=== PATIENT | male | born 1960 | race Caucasian/White ===

== ENCOUNTER → 2022-04-06 12:05 | Outpatient (CLI) | payer OTHER, SELFPAY ==
--- NOTE | ~2022-04-06 | XR_ITS ---
XR lumbar spine 2-3V DATE: 04/06/2022 12:20 INDICATION: Lumbar radiculopathy TECHNIQUE: AP, lateral, coned lateral lumbosacral views COMPARISON: None FINDINGS: 17 degrees dextroscoliosis measured from T12 to L4. Normal alignment lumbar spine. No fracture or bone destruction is evident. The included lower thoraci c and lumbar pedicles are intact. Moderate degenerative disc disease at L1-2 and L3-4. Severe degenerative disc disease at L2-3 and L4- 5. Mild degenerative disc disease at L5-S1. The sacroiliac joints are intact. IMPRESSION: Levoscoliosis Multilevel degenerative disc disease Reviewed, dictated and finalized at location B.
== END ==
PROVIDERS: PCP Family Medicine; Visit Provider Family Medicine
DX: M54.16 Radiculopathy, lumbar region (principal); M51.36 Other intervertebral disc degeneration, lumbar region
CPT/HCPCS: 72100

== ENCOUNTER 2022-05-08 15:33 | Outpatient (RCR) | payer OTHER, SELFPAY ==
--- NOTE | 2022-05-08 16:32 | PTOPEVDC ---
Thank you for referring Eligio Fuentes to [facility].? An evaluation has been completed. No further treatment is needed. Evaluation Information Diagnosis Low back pain Onset chronic Subjective Information Pt states he first hurt his back in 1975, his freshman year of high school. He states he has never reported it because it is so infrequent last generally only 1-2 weeks at a time. This pain in increasing in frequently. He reports L sided pain that travels down his L leg, he also has intermittent pain on the R side that radiated to his entire body. Pt states his pain is very intermittent and he is not currently having any now. When he is not having pain he is able to run, exercise, and do whatever he wants. Pt states he would like to know what machines at [employer] are best for his back. Reported Pain Level Pain Score 0: Self Report Assessment PT Clinical Summary Eligio is an active 61 y/o male who presents to therapy with a diagnosis of lumbar radiculopathy. He reports intermittent pain and no desire to continue with routine skilled therapy and would just like instruction in a HEP for sciatica . Today he demonstrates BLE ROM that is WNL and well as good functional strength. He does not report any tenderness to palpation and does not reports symptoms with a Slump, sciatic nerve irritation test. He was instructed in sciatic nerve glides, piriformis stretching, and mobilization. He was instructed to follow up with her referring provider if any other needs arise. He will be discharged from skilled therapy services at this time. Plan of Care PT Services Indicated No Treatment Frequency and to be d/c'ed. Pt reports no skilled therapy needs Duration
== END 2022-05-11 16:09 | disposition home or self-care (01) ==
LOC: ANHGOSHPT 15:33
PROVIDERS: PCP Family Medicine; Visit Provider Family Medicine
DX: M54.16 Radiculopathy, lumbar region (principal)
CPT/HCPCS: 97110; 97161

== ENCOUNTER 2023-04-07 12:35 | Observation (INO) | payer OTHER, SELFPAY ==
[2023-04-07] VITALS (35 sets, daily range): BP systolic 156–195; BP diastolic 85–98; PULSE 62–100; RESP 3–21; TEMP 35.6–36.7; O2SAT 97–100; BMI 25.3; BMI 25.9
--- NOTE | ~2023-04-07 | US_ITS ---
EXAMINATION: US renal BI DATE: 04/08/2023 11:06 INDICATION: Hypertension. Lactate acidosis. TECHNIQUE: Multiple ultrasound grayscale images of the kidneys were obtained. COMPARISON: None. FINDINGS: The right kidney measures 10.8 x 5.1 x 5.4 cm. The left kidney measures 11.4 x 5.9 x 4.9 cm. The kidn eys demonstrate normal parenchymal echogenicity. There is a 3.5 cm cyst in right kidney. There is no hydronephrosis. The bladder is normal. IMPRESSION: 1. Normal kidney sizes. No hydronephrosis. Reviewed, dictated and finalized at location A.
--- NOTE | ~2023-04-07 | XR_ITS ---
Portable chest x-ray Comparison: None Clinical History: Syncope Findings: Lungs are clear, without focal consolidation or pleural effusion. Cardiomediastinal silho uette is stable. Bones and soft tissues are unremarkable. Impression: Normal chest. Reviewed, dictated and finalized at location . Impression: Normal chest.
--- NOTE | ~2023-04-07 | CT_ITS ---
EXAMINATION: CT abdomen pelvis w con DATE: 04/07/2023 14:56 INDICATION: Vomiting. Lactic acidosis. TECHNIQUE: Computed tomography (CT) of the abdomen and pelvis was performed with 100 mL Omnipaque 350 intravenous contrast. Automated exposure control and iterative reconstruction technique were employe d. The dose-length product was 497.94 mGy-cm. COMPARISON: None. FINDINGS: The visualized portions of the lung bases demonstrate mild atelectasis. No pleural effusion . The heart size is normal. No pericardial effusion. There is a small sliding hiatal hernia. There is an 8 mm cyst in the liver. Calcifications in the liver are consistent with old granulomatous disease . The spleen, gallbladder, pancreas, and adrenal glands are normal. There is a 3.1 cm cyst in right k idney. Left kidney is normal. There is mild aortic atherosclerosis. There is no significant stenosis of celiac axis, superior mesenteric artery, or inferior mesenteric artery. There is an umbilical jose ia containing fat. There are no dilated loops of bowel. The appendix is normal. There are no patholog ically enlarged lymph nodes. There is no ascites. There is severe lumbar spondylosis. There are chron ic bilateral L5 pars defects. There is 3 mm anterolisthesis of L5 on S1. Number dextroscoliosis is no cl. IMPRESSION: 1. Small sliding hiatal hernia. 2. Umbilical hernia containing fat. Reviewed, dictated and finalized at location A.
--- NOTE | ~2023-04-07 | US_ITS ---
EXAMINATION: US carotid duplex BI DATE: 04/08/2023 11:06 INDICATION: Syncope. TECHNIQUE: Grayscale, color Doppler, and pulsed Doppler images of the cervical carotid arteries were obtained. The degree of vessel stenosis is placed in one of the following categories: normal, <50%, 5 0-69%, >=70% but less than near-occlusion, near-occlusion, or total occlusion. Note that percent sten osis relative to normal distal artery lumen diameter is indirectly measured from velocity measurement s as described by Justo, et al. Radiology 2003; 229:340-346. COMPARISON: None. FINDINGS: RIGHT: The right common carotid artery (CCA) peak systolic velocity (PSV) is 107 cm/s. The right internal ca rotid artery (ICA) PSV is 90 cm/s. The right ICA end-diastolic velocity (EDV) is 30 cm/s. The right I CA/CCA PSV ratio is 1.0. Grayscale and color Doppler images yield an estimate of <50% diameter reduct ion from plaque in the ICA. There is antegrade flow in the right vertebral artery. LEFT: The left CCA PSV is 113 cm/s. The left ICA PSV is 97 cm/s. The left ICA EDV is 43 cm/s. The left ICA/ CCA PSV ratio is 0.9. Grayscale and color Doppler images yield an estimate of <50% diameter reduction from plaque in the ICA. There is antegrade flow in the left vertebral artery. IMPRESSION: 1. <50% stenosis in the right internal carotid artery. 2. <50% stenosis in the left internal carotid artery. Reviewed, dictated and finalized at location A.
--- NOTE | ~2023-04-07 | CT_ITS ---
Non-contrast Head CT History: Syncope, seizure Technique: Axial non-contrast imaging of the brain was performed. Dose reduction technique was used on this scan by utilizing automated exposure control and iterative reconstruction technique. The dose -length product (DLP) was 605.33 mGy-cm. Findings: There is no evidence of intracranial hemorrhage, mass lesion, or acute infarct. Brain par enchyma appears normal. The ventricles and subarachnoid spaces are normal in size. The calvarium ap pears normal. The visualized paranasal sinuses and mastoid air cells are clear. Impression: No significant abnormality seen. Reviewed, dictated and finalized at location . Impression: No significant abnormality seen.
[2023-04-07 13:01] LABS: Glucose Point of Care 194 mg/dl (65-105)
--- NOTE | 2023-04-07 13:04 | ED.SEIZURE ---
HPI - Seizure General Chief Complaint: Seizure Stated Complaint: Seizure Time Seen by Provider: 04/07/23 13:04 History of Present Illness HPI Narrative: Patient is a 62-year-old male presenting after syncopal episode. Patient states that he woke up this morning feeling nauseated which sometimes happens to him. States that he was able to eat a bowl of cereal and then had several episodes of emesis. States that he then syncopized. States that he has been very sweaty and nauseated since that time. States that this has happened in the past and he had to have a glucose monitor which did not show any problems. He denies any pain currently. States that he still feels a bit nauseous. No numbness or weakness. No urinary incontinence or tongue biting. No further complaints. Related Data Home Medications Medication Instructions Recorded Confirmed cetirizine 10 mg tablet (Zyrtec) 10 mg PO DAILY PRN Allergy Symptoms 04/01/21 04/07/23 meclizine 25 mg tablet 25 mg PO DAILY PRN Vertigo 04/01/21 04/07/23 nlbcuji-uzihdyfalqlly-ndwpkxme 250 2 tablet PO Q4-6H PRN Migraine 04/07/23 04/07/23 mg-250 mg-65 mg tablet (Excedrin Headache Migraine) Allergies Allergy/AdvReac Type Severity Reaction Status Date / Time No Known Allergies Allergy Verified 04/07/23 12:52 Review of Systems Review of Systems: All systems reviewed & are unremarkable except as noted in HPI and below PMFSH Past Medical History Medical History Allergy to environmental factors Dyslipidemia History of COVID-19 05/2020 Vertigo Family History Family History Father Family history of obesity, Onset Age: 68 Hypertension, Onset Age: 68 Cerebrovascular accident, Onset Age: 68 Mother Hypertension Family history of pancreatic cancer, Onset Age: 86 Social History Social History Smoking status: Former smoker Alcohol intake: never Substance use: never Substance use type: does not use Lack of Transportation: No Lack of Food: Never True Current Housing: I Have Housing Concerned About Future Housing: No Difficulty Paying Gas/Electric Bills: No Difficulty Paying for Meds: No Currently Unemployed: No Education: Decline to Answer Difficulty w/ Childcare or Family Care: No Living arrangements: with family Additional living arrangements comments: Occupation/Education: occupation Gender identity (if verbalized by the patient): Male Sexual Orientation (if Verbalized by the Patient): Straight or Heterosexual Spiritual care concerns: No Agree to blood products: Yes Exam Narrative: GENERAL: Lying in bed with his eyes closed in no acute distress, diaphoretic, pleasant and cooperative HEAD: Normocephalic, atraumatic. EYES: PERRLA and EOMI. ENT: Nares clear, no rhinorrhea or epistaxis. Mucous membranes moist. NECK: Supple. CHEST: Clear to auscultation. No respiratory distress. HEART: Regular rate and rhythm ABDOMEN: Soft, nontender, nondistended EXTREMITIES: Normal range of motion. No edema. SKIN: Warm, diaphoretic NEURO: No focal deficits. Alert and oriented x3. PSYCH: Normal mood and affect. Course Vital Signs Vital signs: Vital Signs Temperature 96.0 F L 04/07/23 12:41 Pulse Rate 67 04/07/23 12:41 Respiratory Rate 12 04/07/23 12:41 Blood Pressure 158/96 H 04/07/23 12:41 Pulse Oximetry 100 04/07/23 12:41 Oxygen Delivery Room Air 04/07/23 12:41 Temperature 97.6 F 04/09/23 07:29 Pulse Rate 68 04/09/23 12:00 Respiratory Rate 14 04/09/23 07:29 Blood Pressure 108/57 L 04/09/23 07:29 Pulse Oximetry 95 04/09/23 07:29 Oxygen Delivery Room Air 04/09/23 08:00 MDM - Seizure MDM Narrative Medical decision making narrative: Patient is a 62-year-old male presenting with emesis and sync
[2023-04-07] MEDS: ONDANSETRON INJ 4 MG/2 ML VIAL (13:08)
[2023-04-07] MEDS: LACTATED RINGERS 1,000 ML 999 ML (13:08)
--- NOTE | 2023-04-07 13:08 | ECG_ITS ---
Measurements Intervals [place] Rate: 62 P: 42 MA: 192 QRS: 58 QRSD: 115 T: 73 QT: 472 QTc: 482 Interpretive Statements SINUS RHYTHM MODERATE INTRAVENTRICULAR CONDUCTION DELAY [110+ ms QRS DURATION] PROLONGED QT INTERVAL NO PREVIOUS ECG AVAILABLE FOR COMPARISON Electronically Signed On 04-07-2023 14:24:19 CDT by Prosper Zayas M.D.
[2023-04-07 13:28] LABS: Basophils Percent Auto 0.5 % (0.2-1.2); Eosinophils Absolute Auto 0.1 K/mm3 (0-0.3); Eosinophils Percent Auto 1.6 % (0-4.4); Hematocrit 44.3 % (42.0-52.0); Hemoglobin 15.6 g/dL (14.0-18.0); Immature Granulocyte Absolute 0.04 K/mm3 (0.00-0.031); Immature Granulocyte Percent A 0.6 % (0-0.5); Lymphocytes Absolute Auto 1.17 K/mm3 (0.9-3.2); Lymphocytes Percent Auto 18.2 % (18.3-44.2); Mean Corpuscular HGB Conc 35.2 g/dl (32-36); Mean Corpuscular Hemoglobin 29.5 pg (26-34); Mean Corpuscular Volume 83.9 fl (80-100); Mean Platelet Volume 8.4 fl (7.4-10.4); Monocytes Absolute Auto 0.3 K/mm3 (0.1-0.6); Neutrophils Absolute Auto 4.8 K/mm3 (1.3-6.7); Neutrophils Percent Auto 75.1 % (45.5-73.1); Platelet Count Result 246 k/mm3 (150-375); Red Blood Count 5.28 M/mm3 (4.6-6.20); Red Cell Distribution Width 12.2 % (11.5-14.5); White Blood Count 6.4 K/mm3 (4.5-10.0)
[2023-04-07 13:39] LABS: Alanine Aminotransferase 32 U/L (6-50); Albumin Level 4.1 g/dL (3.5-5.1); Alkaline Phosphatase 91 U/L (38-126); Anion Gap 10 mmol/L (8-16); Aspartate Amino Transferase 31 U/L (17-59); Bilirubin,Total 0.7 mg/dL (0.2-1.3); Blood Urea Nitrogen 20 mg/dL (9-20); Calcium 8.7 mg/dL (8.4-10.2); Carbon Dioxide 19 mmol/L (22-30); Chloride 106 mmol/L (98-107); Estimated CRCL calculation 114 ml/min; Estimated Glomerular Filt Rate > 60; Glucose 184 mg/dL (65-110); Lipase 54 U/L (23-300); Magnesium 1.8 mg/dL (1.6-2.3); Potassium 3.2 mmol/L (3.4-5.0); Prothrombin Time 13.4 Seconds (11.1-14.7); Sodium 135 mmol/L (137-145)
[2023-04-07 13:43] LABS: Lactic Acid Reflex 4.5 mmol/L (0.7-2.0)
[2023-04-07 13:50] LABS: Troponin I < 0.012 ng/mL (0.000-0.034)
[2023-04-07] MEDS: LACTATED RINGERS 1,000 ML 999 ML IV CONT ×2 (14:40→15:02)
[2023-04-07] MEDS: ONDANSETRON INJ 4 MG/2 ML VIAL IV PUSH ×2 (15:02→21:55)
[2023-04-07] MEDS: FAMOTIDINE 20 MG/2 ML VIAL IV PUSH (15:02)
[2023-04-07 15:30] LABS: Appearance Urine Clear (Clear); Bilirubin Urine Negative (Negative); Blood Urine Negative (Negative); Color Urine Yellow (Yellow); Glucose Urine UA Negative (Negative); Ketones Urine 1+ mg/dL (Negative); Leukocyte Esterase Ur Negative LEU/UL (Negative); Nitrate Urine Negative (Negative); Protein Urine Negative (Negative); Specific Grav Ur 1.034 (1.001-1.035); Urobilinogen Urine 0.2 mg/dL (<2.0); pH Urine 5.5 (5.0-9.0)
[2023-04-07 15:33] LABS: Add Urine Microscopic? NO
[2023-04-07] MEDS: POTASSIUM CHLORIDE INJ 40 MEQ in SODIUM CHLORIDE 0.9% IV 500 ML 130 MEQ IVPB (16:13)
[2023-04-07 16:26] LABS: Reflex Lactic Acid Yes or No Add Lactic
[2023-04-07 17:04] LABS: Lactic Acid 3.6 mmol/L (0.7-2.0)
[2023-04-07 17:09] LABS: Troponin I < 0.012 ng/mL (0.000-0.034)
[2023-04-07] MEDS: MAGNESIUM SULF 2 GM/WATER 50ML 2 GM/50 ML BAG IVPB (17:22)
--- NOTE | 2023-04-07 19:17 | PM.IMHP ---
H&P: HPI History of Present Illness Date/Time: 04/07/23 19:17 Chief Complaint: Syncope Narrative: This 62-year-old male with past medical history significant for migraine headache. Patient came in to his regular checkup at his primary care physician according to patient he skipped breakfast and was fasting for lab work when all of a sudden he was sitting for his blood draw when he felt dizzy and passed out. Patient has been his usual state of health prior to this denies any fevers, rigors, chills, cough, sputum production, chest pain, dizziness, lightheadedness, shortness of breath, nausea vomiting diarrhea abdominal pain, leg swelling, palpitations, PND, orthopnea. Preliminary workup has been essentially nonrevealing. EXAMINATION: CT abdomen pelvis w con DATE: 04/07/2023 14:56 INDICATION: Vomiting. Lactic acidosis. TECHNIQUE: Computed tomography (CT) of the abdomen and pelvis was performed with 100 mL Omnipaque 350 intravenous contrast. Automated exposure control and iterative reconstruction technique were employed. The dose-length product was 497.94 mGy-cm. COMPARISON: None. FINDINGS: The visualized portions of the lung bases demonstrate mild atelectasis. No pleural effusion. The heart size is normal. No pericardial effusion. There is a small sliding hiatal hernia. There is an 8 mm cyst in the liver. Calcifications in the liver are consistent with old granulomatous disease. The spleen, gallbladder, pancreas, and adrenal glands are normal. There is a 3.1 cm cyst in right kidney. Left kidney is normal. There is mild aortic atherosclerosis. There is no significant stenosis of celiac axis, superior mesenteric artery, or inferior mesenteric artery. There is an umbilical hernia containing fat. There are no dilated loops of bowel. The appendix is normal. There are no pathologically enlarged lymph nodes. There is no ascites. There is severe lumbar spondylosis. There are chronic bilateral L5 pars defects. There is 3 mm anterolisthesis of L5 on S1. Number dextroscoliosis is noted. IMPRESSION: 1. Small sliding hiatal hernia. 2. Umbilical hernia containing fat. Non-contrast Head CT History: Syncope, seizure Technique:? Axial non-contrast imaging of the brain was performed. Dose reduction technique was used on this scan by utilizing automated exposure control and iterative reconstruction technique. The dose-length product (DLP) was 605.33 mGy-cm. Findings:? There is no evidence of intracranial hemorrhage, mass lesion, or acute infarct.? Brain parenchyma appears normal.? The ventricles and subarachnoid spaces are normal in size.? The calvarium appears normal.? The visualized paranasal sinuses and mastoid air cells are clear. Impression: No significant abnormality seen. Portable chest x-ray Comparison: None Clinical History: Syncope Findings:? Lungs are clear, without focal consolidation or pleural effusion.? Cardiomediastinal silhouette is stable. Bones and soft tissues are unremarkable. ? Impression: ? Normal chest. Review of Systems Review of Systems: syncope Constitutional: Constitutional: Denies chills, Denies fatigue, Denies fever(s), Denies malaise, Denies night sweats, Denies poor appetite and Denies weakness Eyes: Eyes: Denies change in vision ENT: Denies dysphagia, Denies vertigo, Denies dizziness and Denies odynophagia Cardiovascular: Cardiovascular: Denies chest pain, Reports syncope, Denies edema, Denies irregular heart rhythm, Denies leg edema, Denies radiating jaw, neck or arm pain, Denies palpitations and Denies slow heart rate Respiratory: Respiratory: Denies chest congestion, Denies cough, Denies excessive phlegm production and Denies dyspnea Gastrointestinal: Gastrointestinal: Denies abdominal pain, Denies dyspepsia, Denies heartburn, Denies diarrhea, Denies nausea and Denies vomiting Genitourinary: Genitourinary: Denies dysuria Musculoskeletal: Musculoskeletal: Denies back pain, Denies myalgias
[2023-04-07 20:04] LABS: Troponin I < 0.012 ng/mL (0.000-0.034)
--- NOTE | 2023-04-07 20:44 | PC.NURSE ---
2043-CALLED TO FLOOR. UNAWARE OF PATIENT'S NAME AND HAS NOT REVIEWED ED CHART. STATES WAS JUST CALLED ABOUT PATIENT. [facility]MS CONSULTANT TO CALL BACK.
--- NOTE | 2023-04-07 20:55 | PC.NURSE ---
2054-SPOKE TO BRYCE WHO REPORTS RECEIVING NURSE HAS NO QUESTIONS REGARDING PATIENT. PER BRYCE, OK TO TRANSPORT PATIENT TO THE FLOOR.
--- NOTE | 2023-04-07 21:08 | ADMGEN ---
This patient, Eligio Fuentes, was admitted to IMU Room 205-02. Patient/family oriented to hospital policies and general routines including ID bracelet, bed and alarms, visiting hours, pain management, procedures, bathroom and other care routines, personal items, smoking policy, room service/diet, and visiting hours. Information on how to activate the Rapid Response Team has been discussed. Patient/Family are encouraged to report perceived risks to care and to ask questions if they do not understand what they are told or what they should do.
[2023-04-07 23:43] LABS: Glucose Point of Care 136 mg/dl (65-105)
[2023-04-08] VITALS (12 sets, daily range): BP systolic 128–175; BP diastolic 70–87; PULSE 74–98; RESP 12–18; TEMP 36.4–37.7; O2SAT 97–100
--- NOTE | 2023-04-08 | ECHO_ITS ---
Patient Info Name: Eligio Fuentes Age: 62 years : 1960 Gender: Male Ht: 70 in Wt: 180 lbs BSA: 2.02 m2 HR: 92 bpm BP: 163 / 81 mmHg Heart Rhythm: Sinus Rhythm Technical Quality: Good Exam Date: 04/08/2023 9:43 AM Exam Location: [facility] Pulmonary Patient Status: Inpatient Admit Date: 04/07/2023 Staff Ordering Physician: Ivory Carvajal MD Production Roustabout: Jenni Xiong RDCS Attending Provider: Randy Ma MD Referring Physician: Wei VIRGEN; Exam Type: CA echo doppler color flow Study Info Indications - SYNCOPE Complete two-dimensional, color flow and Doppler transthoracic echocardiogram is performed. Summary 1. Complete two-dimensional, color flow and Doppler transthoracic echocardiogram is performed. 2. Left ventricular chamber dimension is normal. 3. Left ventricular systolic function is normal, estimated at 65-70%. 4. There is mildly increased left ventricular wall thickness. 5. The left ventricular diastolic function is grade I diastolic dysfunction. 6. There is mild aortic valve sclerosis. 7. There is mild tricuspid valve regurgitation. Left Ventricle Left ventricular chamber dimension is normal. Left ventricular systolic function is normal, estimated at 65-70%. There is mildly increased left ventricular wall thickness. The left ventricular diastolic function is grade I diastolic dysfunction. Right Ventricle Right ventricular chamber dimension is normal. Right ventricular systolic function is normal. Left Atria Left atrial chamber dimension is normal. Right Atria Right atrial chamber dimension is normal. Atrial Septum Intact interatrial septum visualized by color flow imaging. Aortic Valve The aortic valve is trileaflet. There is mild aortic valve sclerosis. There is no aortic valve stenosis. There is trace aortic valve regurgitation. Pulmonic Valve The pulmonic valve is normal. There is no pulmonic valve stenosis. There is mild pulmonic regurgitation. Mitral Valve The mitral valve has normal leaflets. There is no mitral valve stenosis. There is trace mitral valve regurgitation. Tricuspid Valve The tricuspid valve leaflets are normal. There is no significant tricuspid valve stenosis. There is mild tricuspid valve regurgitation. No pulmonary hypertension, estimated pulmonary arterial systolic pressure is 14 mmHg. Pericardium/Pleural The pericardium appears normal. There is no pericardial effusion. Inferior Vena Cava Normal inferior vena cava with >50% collapse upon inspiration consistent with normal right atrial pressure, 10 mmHg. Aorta The aortic root size at the sinus of Valsalva is normal. Left Ventricular Outflow Tract Name Value Normal LVOT 2D LVOT Diameter 2.1 cm LVOT Doppler LVOT Peak Gradient 2 mmHg LVOT Mean Gradient 2 mmHg LVOT VTI 24 cm LVOT VTI/AV VTI Ratio 0.9 LVOT Stroke Volume 79 ml LVOT CO 4.8 l/min LVOT CI 2.4 l/min/m2 Pulmonic Valve
[2023-04-08] MEDS: ONDANSETRON INJ 4 MG/2 ML VIAL IV PUSH (06:30)
[2023-04-08] MEDS: lisinopriL 5 MG TABLET PO (09:05)
[2023-04-08 09:18] LABS: Hematocrit 42.7 % (42.0-52.0); Hemoglobin 15.5 g/dL (14.0-18.0); Mean Corpuscular HGB Conc 36.3 g/dl (32-36); Mean Corpuscular Hemoglobin 29.9 pg (26-34); Mean Corpuscular Volume 82.3 fl (80-100); Mean Platelet Volume 8.4 fl (7.4-10.4); Platelet Count Result 281 k/mm3 (150-375); Red Blood Count 5.19 M/mm3 (4.6-6.20); Red Cell Distribution Width 12.2 % (11.5-14.5); White Blood Count 14.2 K/mm3 (4.5-10.0)
[2023-04-08 09:33] LABS: Anion Gap 7 mmol/L (8-16); Blood Urea Nitrogen 15 mg/dL (9-20); Calcium 8.3 mg/dL (8.4-10.2); Carbon Dioxide 26 mmol/L (22-30); Chloride 104 mmol/L (98-107); Estimated CRCL calculation 78 ml/min; Estimated Glomerular Filt Rate > 60; Glucose 117 mg/dL (65-110); Magnesium 2.1 mg/dL (1.6-2.3); Potassium 3.7 mmol/L (3.4-5.0); Sodium 137 mmol/L (137-145)
--- NOTE | 2023-04-08 10:21 | PM.IMPN ---
Progress Note: A&P Assessment and Plan (1) Syncope and collapse: Code(s): R55 - Syncope and collapse Status: Acute Assessment and Plan: Admit to IMU Continuous telemetry Continuos pulse oximetry Echocardiogram in a.m. Likely to reflex syncope EKG Rate 62 IN 192 QRSd 115 QT 472 QTc 482 --[place]-- P 42 QRS 58 T 73 SINUS RHYTHM MODERATE INTRAVENTRICULAR CONDUCTION DELAY [110+ ms QRS DURATION] PROLONGED QT INTERVAL NO PREVIOUS ECG AVAILABLE FOR COMPARISON (2) Prolonged QT interval: Code(s): R94.31 - Abnormal electrocardiogram [ECG] [EKG] Status: Acute Assessment and Plan: Continue to monitor (3) Orthostatic hypertension: Code(s): I10 - Essential (primary) hypertension Status: Acute Assessment and Plan: Patient on no meds Will start lisinopril Plan 04/08/2023: 62-year-old male presented for syncopal episode. He woke this feeling nauseated which is chronic problem. Ate bowl of cereal and had several episode of emesis. He then passed out. Ongoing nausea since then. History of vertigo and migraine. Hypertensive on presentation. EKG with normal sinus rhythm no ST-T changes. Potassium level CT head and CT abdomen pelvis without and acute abnormalities. Symptomatic treatment with Zofran lactic acid was also elevated at 4.5. IV fluid treatment given. WBC count is normal platelets normal. Lipase normal urine is negative. Serial troponins negative chest x-ray is negative. Echo planned continue to monitor on telemetry. QTC 482 started on lisinopril for hypertension. No prior diagnosis febrile and had leukocytosis 04/08/2023. Will recheck lactic acid which came back normal. Compazine p.r.n. could have some serous otitis media. Will add amoxicillin clavulanate course. Flonase nasal spray added. Renal ultrasound negative Subjective Date/time seen: 04/08/23 10:21 Interval history: 62-year-old male presented for syncopal episode. He woke this feeling nauseated which is chronic problem. Ate bowl of cereal and had several episode of emesis. He then passed out. Ongoing nausea since then. History of vertigo and migraine. Hypertensive on presentation. EKG with normal sinus rhythm no ST-T changes. Potassium level CT head and CT abdomen pelvis without and acute abnormalities. Symptomatic treatment with Zofran lactic acid was also elevated at 4.5. IV fluid treatment given. WBC count is normal platelets normal. Lipase normal urine is negative. Serial troponins negative chest x-ray is negative. Echo planned continue to monitor on telemetry. QTC 482 started on lisinopril for hypertension. No prior diagnosis febrile and had leukocytosis 04/08/2023. Will recheck lactic acid Review of Systems Review of Systems: All systems reviewed & are unremarkable except as noted in HPI and below Exam Narrative: GENERAL: Lying in bed with his eyes closed in no acute distress, diaphoretic, pleasant and cooperative HEAD: Normocephalic, atraumatic. EYES: PERRLA and EOMI. ENT: Nares clear, no rhinorrhea or epistaxis.? Mucous membranes moist. NECK: Supple. CHEST: Clear to auscultation.? No respiratory distress. HEART: Regular rate and rhythm ABDOMEN: Soft, nontender, nondistended EXTREMITIES: Normal range of motion.? No edema. SKIN: Warm, diaphoretic NEURO: No focal deficits.? Alert and oriented x3. PSYCH: Normal mood and affect. Objective Data Vital Signs Vital Signs: Vital Signs - 24 hr 04/07/23 12:41 04/07/23 12:49 04/07/23 12:51 Temperature 96.0 F L Pulse Rate 67 69 Respiratory Rate 12 Blood Pressure 158/96 H Pulse Oximetry 100 100 Oxygen Delivery Room Air Room Air 04/07/23 12:50 04/07/23 12:49 04/07/23 13:00 Temperature Pulse Rate 88 62 73 Respiratory Rate 12 21 H Blood Pressure Pulse Oximetry 100 100 Oxygen Delivery 04/07/23 13:01 04/07/23 13:32 04/07/23 13:33 Temperature Pulse Rate 69 63 68 Respiratory Rate 14 14 15 Blood Pr
[2023-04-08 11:25] LABS: Lactic Acid Reflex 1.5 mmol/L (0.7-2.0)
[2023-04-08] MEDS: PROCHLORPERAZINE EDISYLATE 10 MG/2 ML VIAL IV PUSH (12:39)
[2023-04-08] MEDS: ACETAMINOPHEN/ASPIRIN/CAFFEINE 250-250-65 MG TABLET 2 TABLET PO (14:05)
[2023-04-08] MEDS: AMOXICILLIN/CLAVULANATE K 875-125 MG TAB 1 TABLET PO ×2 (14:05→20:45)
[2023-04-08 19:41] LABS: Influenza A QL RT-PCR Negative (Negative); Influenza B QL RT-PCR Negative (Negative); SARS-CoV-2 RNA PCR Negative (Negative)
[2023-04-08] MEDS: FLUTICASONE PROPIONATE 0.05% NA SPR 16 GM BTL (*BKC) 1 SPRAY NASAL (20:45)
[2023-04-09] VITALS: PULSE 78
[2023-04-09 04:00] VITALS: PULSE 53
[2023-04-09 04:47] LABS: Basophils Percent Auto 0.3 % (0.2-1.2); Eosinophils Absolute Auto 0.1 K/mm3 (0-0.3); Eosinophils Percent Auto 0.7 % (0-4.4); Hematocrit 40.7 % (42.0-52.0); Hemoglobin 14.2 g/dL (14.0-18.0); Immature Granulocyte Absolute 0.02 K/mm3 (0.00-0.031); Immature Granulocyte Percent A 0.3 % (0-0.5); Lymphocytes Absolute Auto 1.48 K/mm3 (0.9-3.2); Lymphocytes Percent Auto 20.7 % (18.3-44.2); Mean Corpuscular HGB Conc 34.9 g/dl (32-36); Mean Corpuscular Hemoglobin 29.6 pg (26-34); Mean Platelet Volume 8.7 fl (7.4-10.4); Monocytes Absolute Auto 0.5 K/mm3 (0.1-0.6); Monocytes Percent Auto 7.4 % (2.6-8.5); Neutrophils Absolute Auto 5.1 K/mm3 (1.3-6.7); Neutrophils Percent Auto 70.6 % (45.5-73.1); Platelet Count Result 247 k/mm3 (150-375); Red Blood Count 4.79 M/mm3 (4.6-6.20); Red Cell Distribution Width 12.4 % (11.5-14.5); White Blood Count 7.2 K/mm3 (4.5-10.0)
[2023-04-09 05:04] LABS: Alanine Aminotransferase 27 U/L (6-50); Albumin Level 3.6 g/dL (3.5-5.1); Alkaline Phosphatase 63 U/L (38-126); Anion Gap 0 mmol/L (8-16); Aspartate Amino Transferase 33 U/L (17-59); Bilirubin,Total 0.6 mg/dL (0.2-1.3); Blood Urea Nitrogen 17 mg/dL (9-20); Calcium 8.2 mg/dL (8.4-10.2); Carbon Dioxide 29 mmol/L (22-30); Chloride 106 mmol/L (98-107); Estimated CRCL calculation 71 ml/min; Estimated Glomerular Filt Rate > 60; Glucose 105 mg/dL (65-110); Magnesium 2.2 mg/dL (1.6-2.3); Potassium 3.5 mmol/L (3.4-5.0); Sodium 135 mmol/L (137-145)
[2023-04-09 07:29] VITALS: BP 108/57; PULSE 76; RESP 14; TEMP 36.4; O2SAT 95
[2023-04-09 08:00] VITALS: PULSE 70
[2023-04-09] MEDS: lisinopriL 5 MG TABLET PO (08:40)
[2023-04-09] MEDS: AMOXICILLIN/CLAVULANATE K 875-125 MG TAB 1 TABLET PO (08:40)
[2023-04-09] MEDS: FLUTICASONE PROPIONATE 0.05% NA SPR 16 GM BTL (*BKC) 1 SPRAY NASAL (08:40)
[2023-04-09 12:00] VITALS: PULSE 68
--- NOTE | 2023-04-09 12:30 | PM.DS ---
DS: Admitting Diagnosis Discharge Date 04/09/2023 Admitting Diagnosis Syncope DS: Discharge Diagnosis Discharge Diagnosis (1) Syncope and collapse: Code(s): R55 - Syncope and collapse Status: Acute (2) Prolonged QT interval: Code(s): R94.31 - Abnormal electrocardiogram [ECG] [EKG] Status: Acute (3) Orthostatic hypertension: Code(s): I10 - Essential (primary) hypertension Status: Acute DS: Summary Hospital Course Hospital Course: 62-year-old male presented for syncopal episode.? He woke this feeling nauseated which is chronic problem.? Ate bowl of cereal and had several episode of emesis.? He then passed out.? Ongoing nausea since then.? History of vertigo and migraine.? Hypertensive on presentation.? EKG with normal sinus rhythm no ST-T changes.? Potassium level was low. CT head and CT abdomen pelvis without and acute abnormalities.? Symptomatic treatment with Zofran. Lactic acid was also elevated at 4.5.? IV fluid treatment given.? WBC count is normal platelets normal.? Lipase normal urine is negative.? Serial troponins negative chest x-ray is negative.? Echo unremarkable. Continue to monitor on telemetry which was unremarkable.? QTC 482 on admission. Started on lisinopril for hypertension however once his symptoms resolve his blood pressure running normal. He has no prior diagnosis. Will hold off on blood pressure medication at discharge. He will continue to be evaluated as an outpatient basis for the diagnosis of hypertension. This was discussed with the patient. The patient was also febrile and had leukocytosis 04/08/2023.? Recheck lactic acid which came back normal.? Compazine p.r.n. could have some serous otitis media.? Added amoxicillin clavulanate course.? Flonase nasal spray added.? Renal ultrasound negative. Patient is symptomatically improved. Leukocytosis resolved. Will continue Augmentin course at discharge for 7 total days. Also advised use of Flonase nasal spray. She also has migraine which probably is 1 of the reason for his presentation. Time Spent with Patient Time attestation: Total time spent providing and/or coordinating discharge services: 35 minutes Exam Narrative: GENERAL: Lying in bed in no acute distress HEAD: Normocephalic, atraumatic. EYES: PERRLA and EOMI. ENT: Nares clear, no rhinorrhea or epistaxis.? Mucous membranes moist. NECK: Supple. CHEST: Clear to auscultation.? No respiratory distress. HEART: Regular rate and rhythm ABDOMEN: Soft, nontender, nondistended EXTREMITIES: Normal range of motion.? No edema. SKIN: Warm, no lesions NEURO: No focal deficits.? Alert and oriented x3. PSYCH: Normal mood and affect. DS: Data Data Completed and Pending Completed studies during hospitalization: Exam Type: ? ? CA echo doppler color flow Study Info Indications ?? ? - SYNCOPE Complete two-dimensional, color flow and Doppler transthoracic echocardiogram is performed. Account #: ? ? [id number] Summary ? 1. Complete two-dimensional, color flow and Doppler transthoracic echocardiogram is performed. ? 2. Left ventricular chamber dimension is normal. ? 3. Left ventricular systolic function is normal, estimated at 65-70%. ? 4. There is mildly increased left ventricular wall thickness. ? 5. The left ventricular diastolic function is grade I diastolic dysfunction. ? 6. There is mild aortic valve sclerosis. ? 7. There is mild tricuspid valve regurgitation. Left Ventricle ? Left ventricular chamber dimension is normal. ? Left ventricular systolic function is normal, estimated at 65-70%. ? There is mildly increased left ventricular wall thickness. ? The left ventricular diastolic function is grade I diastolic dysfunction. Right Ventricle ? Right ventricular chamber dimension is normal. ? Right ventricular systolic function is normal. Left Atria ? Left atrial chamber dimension is normal. Right Atria ? Right atrial chamber dimension is normal.
== END 2023-04-09 12:53 | disposition home or self-care (01) ==
LOC: ANHED 13:04 → ANHIMU 21:26
PROVIDERS: Hospitalist; Admitting Provider Internal Medicine; Emergency Provider Emergency Medicine; PCP Family Medicine; Visit Provider Internal Medicine
DX: R55 Syncope and collapse (principal); R94.31 Abnormal electrocardiogram [ECG] [EKG]; I10 Essential (primary) hypertension; E87.6 Hypokalemia; E87.20 Acidosis, unspecified; R11.2 Nausea with vomiting, unspecified; I65.23 Occlusion and stenosis of bilateral carotid arteries; G43.909 Migraine, unspecified, not intractable, without status migrainosus; Z20.822 Contact with and (suspected) exposure to COVID-19
CPT/HCPCS: 36415; 70450; 71045; 74177; 76775; 80048; 80053; 81003; 82948; 83605; 83690; 83735; 84484; 85025; 85027; 85610; 85730; 87040; 87636; 93005; 93306; 93880; 96361; 96365; 96366; 96368; 96374; 96375; 96376; 99285; A9270; G0378; J0780; J2405; J3475; J3480; J7040; J7120; Q9967

== ENCOUNTER 2024-09-21 18:13 | Emergency (ER) | payer OTHER, SELFPAY ==
--- NOTE | ~2024-09-21 | XR_ITS ---
CHEST RADIOGRAPH, PA AND LATERAL CLINICAL HISTORY: syncope . COMPARISON: 04/07/2023 TECHNIQUE: PA and lateral views of the chest. FINDINGS The cardiomediastinal silhouette is unremarkable. The lungs are clear. Visualized osseous structures and soft tissues are unremarkable. IMPRESSION: No focal infiltrate or effusion. Reviewed, dictated and finalized at location A. RATORY TESTER
[2024-09-21 18:46] VITALS: BP 152/95; PULSE 82; RESP 20; TEMP 36.4; O2SAT 98
--- NOTE | 2024-09-21 19:34 | ECG_ITS ---
Test Date: 2024-09-21 23:38:22 Measurements Intervals [place] Rate: 85 P: 39 KS: 140 QRS: 21 QRSD: 104 T: 57 QT: 379 QTc: 452 Interpretive Statements SINUS RHYTHM POSSIBLE ANTERIOR MYOCARDIAL INFARCTION , PROBABLY OLD [30 ms Q WAVE IN V3/V4, OR R < 0.2 mV IN V4] PROBABLE INFERIOR MYOCARDIAL INFARCTION , PROBABLY OLD [35 ms Q WAVE IN II/aVF] No previous ECG available for comparison Electronically Signed On 09-22-2024 11:55:08 MUSEUM GUIDE by Lilly Snow
[2024-09-21 23:59] VITALS: BP 164/92; PULSE 84; RESP 15; O2SAT 99
[2024-09-22 00:08] LABS: Basophils Percent Auto 0.4 % (0.2-1.2); Eosinophils Absolute Auto 0.1 K/mm3 (0-0.3); Eosinophils Percent Auto 0.8 % (0-4.4); Hematocrit 46.7 % (42.0-52.0); Hemoglobin 16.8 g/dL (14.0-18.0); Immature Granulocyte Absolute 0.04 K/mm3 (0.00-0.031); Immature Granulocyte Percent A 0.4 % (0-0.5); Lymphocytes Absolute Auto 1.49 K/mm3 (0.9-3.2); Lymphocytes Percent Auto 15.2 % (18.3-44.2); Mean Corpuscular Hemoglobin 30.1 pg (26-34); Mean Corpuscular Volume 83.5 fl (80-100); Mean Platelet Volume 8.6 fl (7.4-10.4); Monocytes Absolute Auto 0.6 K/mm3 (0.1-0.6); Monocytes Percent Auto 5.7 % (2.6-8.5); Neutrophils Absolute Auto 7.6 K/mm3 (1.3-6.7); Neutrophils Percent Auto 77.5 % (45.5-73.1); Platelet Count Result 279 k/mm3 (150-375); Red Blood Count 5.59 M/mm3 (4.6-6.20); Red Cell Distribution Width 12.3 % (11.5-14.5); White Blood Count 9.8 K/mm3 (4.5-10.0)
[2024-09-22 00:19] LABS: Alanine Aminotransferase 26 U/L (6-50); Albumin Level 4.2 g/dL (3.5-5.1); Alkaline Phosphatase 85 U/L (38-126); Anion Gap 11 mmol/L (4-12); Aspartate Amino Transferase 23 U/L (17-59); Bilirubin,Total 0.6 mg/dL (0.2-1.3); Blood Urea Nitrogen 25 mg/dL (9-20); Calcium 8.7 mg/dL (8.4-10.2); Carbon Dioxide 28 mmol/L (22-30); Chloride 100 mmol/L (98-107); Estimated CRCL calculation 82 ml/min; Estimated Glomerular Filt Rate > 60; Glucose 126 mg/dL (65-110); Potassium 3.5 mmol/L (3.4-5.0); Sodium 139 mmol/L (137-145)
[2024-09-22] MEDS: ONDANSETRON INJ 4 MG/2 ML VIAL IV PUSH (00:40)
[2024-09-22 00:51] LABS: Troponin I < 0.012 ng/mL (0.000-0.034)
[2024-09-22 01:27] LABS: Influenza A QL RT-PCR Negative (Negative); Influenza B QL RT-PCR Negative (Negative); RSV RNA, RT-PCR Negative (Negative); SARS-CoV-2 RNA PCR Negative (Negative)
--- NOTE | 2024-09-22 01:44 | ED_ITS ---
HPI - Dizziness General Chief Complaint: Syncope Stated Complaint: syncopal episode Time Seen by Provider: 09/22/24 00:19 History of Present Illness HPI Narrative: Patient is a 63-year-old male who presents to the emergency department this evening after being sent from urgent care. Patient states that he went to an urgent care as he was concerned that he had an ear infection or the flu. Patient states that he has been battling vertigo for many years and when he developed an ear infection his vertigo worsens. Patient also states that he has had syncopal episode secondary to his vertigo and believes that that was happened today. Patient initially went to an urgent care for getting cleared to go back to work but the urgent care would not give him the clearance informing him that they want him to come to the emergency department to be evaluated for this syncopal episode. Patient did not want to come to the emergency department. Patient states that maybe he blacked out for 2nd but did not fall or hit his head. He is currently denying any symptoms or concerns at this time. Related Data Home Medications ?Medication ?Instructions ?Recorded ?Confirmed ?Last Taken ?Type cetirizine 10 mg tablet (Zyrtec) 10 mg PO DAILY PRN Allergy Symptoms 04/01/21 07/17/24 Unknown History meclizine 25 mg tablet 25 mg PO DAILY PRN Vertigo 04/01/21 07/17/24 Unknown History faeixyc-wfvvwoqlbbzpj-vffibdod 250 2 tablet PO Q4-6H PRN Migraine 04/07/23 07/17/24 Unknown History mg-250 mg-65 mg tablet (Excedrin Headache Migraine) fluticasone propionate 50 1 spray intranasal ONCE PRN 02/14/24 07/17/24 Unknown History mcg/actuation nasal spray,suspension Allergies Allergy/AdvReac Type Severity Reaction Status Date / Time No Known Allergies Allergy Verified 07/17/24 15:47 Review of Systems 2 Review of Systems: All systems are reviewed and are negative unless stated otherwise in the HPI. [facility] Past Medical History Medical History Essential (primary) hypertension Hypertension Dyslipidemia Vertigo History of COVID-19 05/2020 Allergy to environmental factors Family History Family History Father Family history of obesity, Onset Age: 68 Hypertension, Onset Age: 68 Cerebrovascular accident, Onset Age: 68 Mother Hypertension Family history of pancreatic cancer, Onset Age: 86 Social History Social History Smoking status: Former smoker Alcohol intake: never Substance use: never Substance use type: does not use Lack of Transportation: No Lack of Food: Never True Current Housing: I Have Housing Concerned About Future Housing: No Difficulty Paying Gas/Electric Bills: No Difficulty Paying for Meds: No Currently Unemployed: No Education: Decline to Answer Difficulty w/ Childcare or Family Care: No Living arrangements: with family Additional living arrangements comments: Occupation/Education: occupation Gender identity (if verbalized by the patient): Male Sexual Orientation (if Verbalized by the Patient): Straight or Heterosexual Spiritual care concerns: No Agree to blood products: Yes Exam 2 Narrative: General: Alert, awake, afebrile, in no acute distress. HEENT: PERRL, no rhinorrhea, no post nasal drip, oropharynx clear, mild erythema noted along the left tympanic membrane. Neck: Trachea midline, no JVD, no lymphadenopathy. Cardiovascular: Regular rate and rhythm, no murmurs, rubs or gallops, no peripheral edema. Respiratory: Clear to auscultation bilaterally, no tachypnea, no wheezing, no rhonchi, no rubs, no respiratory distress. Abdomen: Soft, nontender, nondistended, no rebound, no guarding, no peritoneal signs. Musculoskeletal: No joint swelling or deformity, normal muscle tone. Skin: No rashes or petechia, no signs of infection. Psychiatric: Alert and oriented, normal behavior and judgment for situation. Neurological: Alert and oriented to person, place, and time. Follows all commands. No focal deficits, speech is clear and fluent. Course Vital Signs Vital signs: Vital Signs Temperature 97.5 F L 09/21/24 18:46 Pulse Rate 82 09/21/24 18:46 Respiratory Rate 20 09/21/24 18:46 Blood Pressure 152/95 H 09/21/24 18:46 Pulse Oximetry 98 09/21/24 18:46 Oxygen Delivery Room Air 09/21/24 18:46 Temperature 97.5 F L 09/21/24 18:46 Pulse Rate 84 09/21/24 23:59 Respiratory Rate 15 09/21/24 23:59 Blood Pressure 164/92 H 09/21/24 23:59 Pulse Oximetry 99 09/21/24 23:59 Oxygen Delivery Room Air 09/21/24 18:46 MDM - Dizziness MDM Narrative Medical decision making narrative: The patient was evaluated by myself in the emergency department. History is obtained from patient who is an independent historian and physical exam was performed. External medical records were reviewed at this time. IV was established and pertinent tests were ordered. EKG was obtained which revealed sinus rhythm rate of 85 beats per minute with ST depressions in lead 2. EKG was independently interpreted by me and is currently pending official cardiology read. Laboratory results obtained revealing no acute process. Troponin negative. Viral swabs negative for COVID/influenza/RSV. Imaging studies obtained included CXR which was independently interpreted by me revealing no acute cardiopulmonary process, which is pending final radiology interpretation. Differential diagnosis considerations include dehydration, electrolyte derangement, acute viral syndrome, peripheral vertigo, otitis media. Comorbidities impacting this visit include history of vertigo. I have evaluated and discussed social determinants of health with the patient that could potentially impact subsequent diagnosis and treatment plans. On repeat assessment of the patient, reevaluation revealed that the patient is doing well and is in no acute distress. Patient symptoms have improved since he arrived to our emergency department. Repeat vital signs were all reviewed and noted to be stable. Differential diagnosis and treatment plan were discussed with the patient at bedside. Patient agrees with discussion and after shared medical decision making agrees with discharge. All questions were answered to the patient's satisfaction. Patient will follow up with his PCP in 3-5 days. Patient was provided with strict return precautions and instructed to return to the emergency department if any new or worsening symptoms develop. The patient was discharged in stable condition. Lab Data 09/21/24 23:57 09/21/24 23:57 Labs: Lab Results 09/21/24 09/22/24 Range/Units 23:57 00:38 WBC 9.8 (4.5-10.0) K/mm3 RBC 5.59 (4.6-6.20) M/mm3 Hgb 16.8 (14.0-18.0) g/dL Hct 46.7 (42.0-52.0) % MCV 83.5 (80-100) fl MCH 30.1 (26-34) pg MCHC 36.0 (32-36) g/dl RDW 12.3 (11.5-14.5) % Plt Count 279 (150-375) k/mm3 MPV 8.6 (7.4-10.4) fl Immature Gran % (Auto) 0.4 (0-0.5) % Neut % (Auto) 77.5 H (45.5-73.1) % Lymph % (Auto) 15.2 L (18.3-44.2) % [place] % (Auto) 5.7 (2.6-8.5) % Eos % (Auto) 0.8 (0-4.4) % Baso % (Auto) 0.4 (0.2-1.2) % Lymph # (Auto) 1.49 (0.9-3.2) K/mm3 [place] # (Auto) 0.6 (0.1-0.6) K/mm3 Eos # (Auto) 0.1 (0-0.3) K/mm3 Baso # (Auto) 0.0 (0.0-0.1) K/mm3 Abs Immat Gran (auto) 0.04 H (0.00-0.031) K/mm3 Absolute Neuts (auto) 7.6 H (1.3-6.7) K/mm3 Absolute Nucleated RBC 0.000 (0.0-0.012) K/mm3 Nucleated RBC % 0.0 (0.0-0.2) % Sodium 139 (137-145) mmol/L Potassium 3.5 (3.4-5.0) mmol/L Chloride 100 (98-107) mmol/L Carbon Dioxide 28 (22-30) mmol/L Anion Gap 11 (4-12) mmol/L BUN 25 H (9-20) mg/dL Creatinine 0.84 (0.7-1.3) mg/dL Estim Creat Clear Calc 82 ml/min Estimated GFR > 60 (59 - ) Glucose 126 H (65-110) mg/dL Calcium 8.7 (8.4-10.2) mg/dL Total Bilirubin 0.6 (0.2-1.3) mg/dL AST 23 (17-59) U/L ALT 26 (6-50) U/L Alkaline Phosphatase 85 (38-126) U/L Troponin I < 0.012 (0.000-0.034) ng/mL Total Protein 7.0 (6.3-8.2) g/dL Albumin 4.2 (3.5-5.1) g/dL Influenza A (RT-PCR) Negative (Negative) Influenza B (RT-PCR) Negative (Negative) RSV (RT-PCR) Negative (Negative) SARS-CoV-2 RNA (RT-PCR) Negative (Negative) Discharge Plan Discharge Clinical Impression: Syncope, Peripheral vertigo, Otitis media Patient Disposition: Home, Self-Care Condition: Improved Instructions: Antibiotic Form, Syncope (ED), Benign Paroxysmal Positional Vertigo (ED) Additional Instructions: Take prescribed antibiotic as instructed for your ear infection. Return to the ED if any new or worsening symptoms develop follow-up with your family doctor within the next 3-5 days. You are cleared to go back to work. Patient Language: Setswana Prescriptions: New amoxicillin 875 mg tablet 875 mg PO Q12H 5 Days Qty: 10 0RF No Action cetirizine [Zyrtec] 10 mg tablet 10 mg PO DAILY MDD 10 mg PRN (Reason: Allergy Symptoms) meclizine 25 mg tablet 25 mg PO DAILY PRN (Reason: Vertigo) fluticasone propionate 50 mcg/actuation spray,suspension 1 spray intranasal ONCE PRN eszopiclone [Lunesta] 2 mg tablet 2 mg PO QHS Qty: 1 0RF Rx Instructions: Take on night of sleep study losartan-hydrochlorothiazide 50-12.5 mg tablet 1 tablet PO DAILY Qty: 90 0RF Excedrin Migraine 250-250-65 mg Tablet 2 tablet PO Q4-6H PRN (Reason: Migraine Headache) Follow-up/Referrals: Aurelia German MD [Primary Care Provider] - 3 Days Time of Disposition: 01:51
[2024-09-22 02:31] VITALS: BP 134/68; PULSE 79; RESP 16; O2SAT 100
== END 2024-09-22 02:32 | disposition home or self-care (01) ==
PROVIDERS: Emergency Provider Emergency Medicine; PCP Family Medicine
DX: R55 Syncope and collapse (principal); H66.92 Otitis media, unspecified, left ear; I10 Essential (primary) hypertension; E78.5 Hyperlipidemia, unspecified; Z87.891 Personal history of nicotine dependence; Z20.822 Contact with and (suspected) exposure to COVID-19
CPT/HCPCS: 36415; 71046; 80053; 84484; 85025; 87637; 93005; 96374; 99284; J2405